=== PATIENT | female | born 1995 | race Caucasian/White ===

== ENCOUNTER → 2022-08-24 07:55 | Outpatient (CLI) | payer OTHER, SELFPAY ==
--- NOTE | 2022-08-24 08:01 | DI.US.S_ITS ---
PROCEDURE: US OB <= 14 WEEKS FETUS INDICATIONS: Dating and viability OUTSIDE/PRIOR DATING DATA: Last menstrual period (LMP): 06/29/2022. LMP-based estimated date of delivery (LEON): 04/05/2023. First dating scan (date and location): 08/24/2022. Estimated date of delivery (LEON) from first dating scan: 04/03/2023. The calculations are made using the clinical LEON of 04/05/2023. TECHNIQUE: Real-time scanning was performed of the fetus and maternal pelvic organs, with image documentation. Endovaginal scanning was also performed to better visualize the fetus and maternal ovaries. COMPARISON: None. FINDINGS: Embryo: Single live intrauterine is identified with crown-rump length measuring 1.8 cm corresponding to 8 weeks 2 days. Small perigestational hemorrhage is identified measuring 3.8 x 2.5 x 0.7 cm. This is compared to 8 weeks 0 days from initial ultrasound. Heart rate: 169 beats per minute Maternal organs: Ovaries demonstrate a corpus luteal cyst on the right.. IMPRESSION: Single live intrauterine measuring 8 weeks 2 days. Small subchorionic hemorrhage. We strive to produce accurate, complete, and clear reports of imaging services. To assist us in improving patient care, this report was composed using standard report templates and voice recognition software. Therefore, it may contain abnormal punctuation, insertions and/or omissions. Occasional wrong-word or sound-alike substitutions may occur. Though we review the report and make efforts to correct it, we do recommend that the report be read carefully in proper context to recognize any text inaccuracies. Dictated by: Nancy Doss M.D. on 08/24/2022 at 13:08 Approved by: Nancy Doss M.D. on 08/24/2022 at 14:13
== END ==
PROVIDERS: Referring Provider Obstetrics & Gynecology; Visit Provider Obstetrics & Gynecology
DX: O46.8X1 Other antepartum hemorrhage, first trimester (principal); Z3A.08 8 weeks gestation of pregnancy
CPT/HCPCS: 76801; 76817

== ENCOUNTER → 2022-09-23 09:46 | Outpatient (CLI) | payer OTHER, SELFPAY ==
[2022-09-23 13:40] LABS: Appearance Urine UA CLEAR; Bilirubin Urine UA NEGATIVE (NEGATIVE); Color Urine UA YELLOW; Glucose Urine UA NEGATIVE (Negative); Ketones Urine UA NEGATIVE (NEGATIVE); Leukocyte Esterase Urine UA 2+ (NEGATIVE); Nitrite Urine UA NEGATIVE (Negative); Occult Blood Urine UA NEGATIVE (Negative); Protein Urine UA NEGATIVE (Negative); Specific Gravity Urine UA <=1.005 (1.000-1.035); Urobilinogen Urine UA 0.2 E.U./dL (0.2)
[2022-09-23 13:50] LABS: pH Urine UA 6.5 (4.5-8.0)
[2022-09-23 14:27] LABS: Bacteria Urine Few (2-10); RBC Urine None Seen (0-5/HPF); Squamous Epithelial Cell Urine 5-10 /HPF (0-5/HPF); WBC Urine 5-10/HPF (0-5/HPF)
[2022-09-23 14:28] LABS: Culture Indicated Urine Cult Not Indicated
[2022-09-23 15:01] LABS: Urine N gonorrhoeae NOT DETECTED
[2022-09-23 15:05] LABS: Urine Chlamydia NOT DETECTED
== END ==
PROVIDERS: Visit Provider Obstetrics & Gynecology
DX: Z34.01 Encounter for supervision of normal first pregnancy, first trimester (principal); Z11.3 Encounter for screening for infections with a predominantly sexual mode of transmission; Z3A.12 12 weeks gestation of pregnancy
CPT/HCPCS: 81003; 81015; 87086; 87491; 87591

== ENCOUNTER → 2022-09-23 10:35 | Outpatient (CLI) | payer OTHER, SELFPAY ==
[2022-09-23 10:57] LABS: Add Manual Diff / Slide Review NO; Basophils Absolute Auto 0 /uL (0-100); Basophils Percent Auto 0.2 % (0-2); Eosinophils Absolute Auto 0 /uL (0-450); Eosinophils Percent Auto 0.3 % (2-4); Lymphocytes Absolute Auto 1400 /uL (1100-4500); Lymphocytes Percent Auto 12.5 % (25-40); Mean Corpuscular HGB Conc 34.3 % (30-36); Mean Corpuscular Hemoglobin 29.8 PG (26-34); Monocytes Absolute Auto 500 /uL (0-900); Monocytes Percent Auto 4.5 % (3-14); Neutrophils Absolute Auto 9000 /uL (1500-7000); Neutrophils Percent Auto 82.5 % (50-75); Platelet Count 309 X10^3/uL (150-400); Red Blood Cell Count 4.02 X10^6/uL (4.0-5.2); Red Cell Distribution Width 12.7 % (11.6-14.8); White Blood Cell Count 10.9 X10^3/uL (4.5-11.0)
[2022-09-24 08:21] LABS: RPR Screen Non Reactive (Non Reactive)
[2022-09-25 08:08] LABS: Varicella IgG Antibody <135 index (Immune >165)
[2022-09-25 20:44] LABS: HIV 1 & 2 Ab/Ag 4th Gen Combo NEGATIVE (NEGATIVE); Hep C Virus Ab w/Reflex Quant NEGATIVE s/c (NEGATIVE); Hepatitis B Surface Antigen NEGATIVE s/c (NEGATIVE); Rubella Antibody IgG 4.3 IU/mL (>15)
== END ==
PROVIDERS: Referring Provider Obstetrics & Gynecology; Visit Provider Obstetrics & Gynecology
DX: Z34.01 Encounter for supervision of normal first pregnancy, first trimester (principal); Z11.3 Encounter for screening for infections with a predominantly sexual mode of transmission; Z3A.12 12 weeks gestation of pregnancy
CPT/HCPCS: 36415; 80055; 81003; 81015; 86787; 86803; 86850; 86900; 86901; 87086; 87389; 87491; 87591

== ENCOUNTER → 2022-10-21 09:56 | Outpatient (CLI) | payer OTHER, SELFPAY ==
[2022-10-23 20:57] LABS: AFP, Serum 32.5 ng/mL (.); Estriol, Free 0.78 ng/mL (.); Inhibin A, Dimeric 123.49 pg/mL (.); Inhibin A, MoM 0.69 (.); Maternal Ethnicity Caucasian (.); Maternal Weight 123 lbs (.); Number of Fetuses No (.); OSBR Risk 1 IN 10000 (.); Results Report (.); Test Results *Screen Negative* (.); hCG, MoM 0.99 (.); hCG, Serum 47319 mIU/mL (.)
== END ==
PROVIDERS: Referring Provider Obstetrics & Gynecology; Visit Provider Obstetrics & Gynecology
DX: Z34.02 Encounter for supervision of normal first pregnancy, second trimester (principal); Z3A.16 16 weeks gestation of pregnancy
CPT/HCPCS: 36415; 82105; 82677; 84702; 86336

== ENCOUNTER → 2022-11-16 14:12 | Outpatient (CLI) | payer OTHER, SELFPAY ==
--- NOTE | 2022-11-16 14:13 | DI.US.S_ITS ---
PROCEDURE: US OB >= 14 WEEKS FETUS INDICATIONS: 20 WEEK ANATOMY SCAN OUTSIDE/PRIOR DATING DATA: Last menstrual period (LMP): 06/29/2022 LMP-based estimated date of delivery (LEON): 04/05/2023. First dating scan (date and location): 08/24/2022. Estimated date of delivery (LEON) from first dating scan: 04/03/2023 Working LEON is 04/05/2023. The calculations are made using the clinical LEON of 04/05/2023. TECHNIQUE: Real-time scanning was performed of the fetus, with image documentation and biometric measurements. COMPARISON: [facility], , OB <= 14 WEEKS FETUS, 08/24/2022, 8:04. FINDINGS: General: A single living intrauterine gestation is present. Presentation: Breech. Placenta: Placental position is fundal , without previa. Amniotic fluid index: 9.8 cm, normal range is 5-24 cm. Single deepest vertical pocket is 3.7 cm. heart rate: 137 beats per minute. Maternal cervical canal: 3.8 cm cm long. Normal lower limit is 2.5 cm. biometrics: Biparietal diameter: 21 weeks 1 day Head circumference: 20 weeks 4 days Abdominal circumference: 20 weeks 4 days Femur length: 19 weeks 3 days Clinically estimated gestational age: 20 weeks Composite gestational age from present scan: 20 weeks 3 days Estimated weight and percentile: 330 g; 57th percentile Anatomic survey: Neuro: Ventricles are non-dilated at less than 10 mm. Cisterna magna is normal at 3-11 mm. Cerebellum is normal in size and morphology. Nuchal skin fold: Normal at less than 6 mm between 14-21 weeks gestational age. Face: Nose and lips, facial profile are normal. Spine: No evidence for spina bifida. Heart: 4-chambered heart is present, with normal ventricular outflow tracts. Diaphragm: Diaphragm is intact. Stomach: Left-sided stomach is present. Kidneys: No hydronephrosis. Normal is less than 5 mm in 2nd trimester, less than 7 mm in 3rd trimester. Cord: 3-vessel cord has orthotopic insertion. Bladder: Normal in size. Extremities: All 4 extremities identified. IMPRESSION: 1. Single living IUP redemonstrated and interval growth is normal. 2. Normal anatomic survey. We strive to produce accurate, complete, and clear reports of imaging services. To assist us in improving patient care, this report was composed using standard report templates and voice recognition software. Therefore, it may contain abnormal punctuation, insertions and/or omissions. Occasional wrong-word or sound-alike substitutions may occur. Though we review the report and make efforts to correct it, we do recommend that the report be read carefully in proper context to recognize any text inaccuracies. Dictated by: Rajeev GELLER Interpreted: Michael Benjamin MD on 11/16/2022 at 15:38 Transcribed by: GUILLE on 11/16/2022 at 15:40 Approved by: Michael Benjamin M.D. on 11/16/2022 at 20:56
== END ==
PROVIDERS: Referring Provider Obstetrics & Gynecology; Visit Provider Obstetrics & Gynecology
DX: Z34.02 Encounter for supervision of normal first pregnancy, second trimester (principal); Z3A.20 20 weeks gestation of pregnancy
CPT/HCPCS: 76811

== ENCOUNTER → 2022-12-30 12:14 | Outpatient (CLI) | payer OTHER, SELFPAY ==
[2022-12-30 13:49] LABS: Hematocrit 32.5 % (36-46); Hemoglobin 11.2 g/dL (12.0-16.0)
[2022-12-30 14:24] LABS: GTT (PREG) 1 Hour PP 50gm Dose 147 mg/dL (76-139)
== END ==
PROVIDERS: Referring Provider Obstetrics & Gynecology; Visit Provider Obstetrics & Gynecology
DX: O26.899 Other specified pregnancy related conditions, unspecified trimester (principal); Z3A.26 26 weeks gestation of pregnancy; Z67.91 Unspecified blood type, Rh negative
CPT/HCPCS: 36415; 82950; 85014; 85018; 86850

== ENCOUNTER → 2023-01-19 08:02 | Outpatient (CLI) | payer OTHER, SELFPAY ==
[2023-01-19 09:06] LABS: Glucose Fasting Gestational 70 mg/dL (76-95)
[2023-01-19 10:40] LABS: Glucose 1 Hour Gest 111 mg/dL (76-180)
[2023-01-19 11:18] LABS: Glucose Tol Interp,Gestational INTERPRETATION
[2023-01-19 11:55] LABS: Glucose 3 Hour Gest 114 mg/dL (76-140)
[2023-01-19 11:59] LABS: Glucose 2 Hour Gest 106 mg/dL (76-155)
== END ==
PROVIDERS: Referring Provider Specialist; Visit Provider Specialist
DX: R73.09 Other abnormal glucose (principal)
CPT/HCPCS: 36415; 82951; 82952

== ENCOUNTER → 2023-03-11 09:15 | Outpatient (CLI) | payer OTHER, SELFPAY ==
[2023-03-12 14:58] LABS: Strep Grp B PCR NEG for Grp B Strep
== END ==
PROVIDERS: Visit Provider Obstetrics & Gynecology
DX: Z34.03 Encounter for supervision of normal first pregnancy, third trimester (principal)
CPT/HCPCS: 87653

== ENCOUNTER 2023-03-17 11:04 | Outpatient (CLI) | payer OTHER, SELFPAY ==
--- NOTE | 2023-03-17 11:46 | PM.OBTRLD ---
Visit Information Visit Information Date of evaluation: 03/17/23 Primary OB Provider: Evans Diehl On-call OB Provider: Ibeth Bains Reason for Evaluation: Yes non-stress test non-stress test reason: decreased movement Vital Signs Vital Signs: Blood pressure 119/79, pulse of 83 [facility] Medical History (Updated 03/17/23 @ 11:48 by Ibeth Bains MD) Abnormal Pap smear of cervix (~2017) Anxiety (~2017) Chronic back pain (~2017) Depression (~2017) Fibroadenoma Pelvic pain PTSD (post-traumatic stress disorder) Rosacea (~2020) Surgical History (Updated 10/20/22 @ 20:19 by Cindy Sanchez) Anesthesia H/O breast surgery History of removal of skin mole [place] teeth extracted (~2011) Family History (Updated 10/20/22 @ 20:20 by Cindy Sanchez) Father Hypertension Sister Anxiety Depression Grandfather Lung cancer Grandmother Dementia Grandfather Heart disease Melanoma Social History marital status: unmarried,living together number of children: 0 household members: significant other lives independently: Yes housing: house pets and animals: Yes (1 dog) education level: college (some college) occupational status: employed (active duty [employer]) current occupational exposures/hazards: No (no Hazmat duties since learning of ) special amer[place] needs: No travel history: recent (domestic only) seatbelt use: always water heater temp set < 120 deg: Yes working smoke detector in home: Yes fire extinguisher in home: Yes carbon monox detector in home: Yes firearms in home: Yes firearms unloaded and locked: Yes do you feel safe at home: Yes Smoking Status: Never smoker second hand exposure: No alcohol intake: former (1-3/week prior to ) substance use type: does not use during the past year weight has: remained stable well-balanced diet: daily or most days daily servings fruits/ve-4 caffeine: Yes (aware of 200mg limit) Type(s) of exercise: walking frequency: 3-4 times per week Evaluation Evaluation Baseline heart rate: 130 Variability: Moderate (11-25) monitor accelerations: Present Monitor Decelerations: Absent Uterine Contraction Intensity: Mild Category of Tracing: Reactive Status: Category l Diagnosis, Plan/Disposition Final Diagnosis (1) Decreased movement: Status: Acute (2) 37 weeks gestation of : Status: Acute Plan/Disposition Plan: Patient reassured that everything looks well. Precautions reviewed. Keep her routine OB appointment. OB Disposition: home
== END 2023-03-17 11:55 | disposition home or self-care (01) ==
LOC: LABOR 11:27 → OB 03-22 11:16
PROVIDERS: Referring Provider Obstetrics & Gynecology; Visit Provider Obstetrics & Gynecology
DX: O36.8130 Decreased fetal movements, third trimester, not applicable or unspecified (principal); Z3A.37 37 weeks gestation of pregnancy
CPT/HCPCS: 59025; G0378; G0379

== ENCOUNTER → 2023-03-18 08:56 | Outpatient (CLI) | payer OTHER, SELFPAY | PROVIDERS: Visit Provider Obstetrics & Gynecology | DX: Z34.01 Encounter for supervision of normal first pregnancy, first trimester (principal) | CPT/HCPCS: 87086 ==

== ENCOUNTER 2023-04-07 15:26 | Outpatient (CLI) | payer OTHER, SELFPAY | END 2023-04-07 16:08 | disposition home or self-care (01) | LOC: OB 04-09 06:09 | PROVIDERS: Referring Provider Obstetrics & Gynecology; Visit Provider Obstetrics & Gynecology | DX: O48.0 Post-term pregnancy (principal); Z3A.40 40 weeks gestation of pregnancy | CPT/HCPCS: 59025; G0378; G0379 ==

== ENCOUNTER 2023-04-10 09:51 | Outpatient (CLI) | payer OTHER, SELFPAY | END 2023-04-10 12:05 | disposition home or self-care (01) | LOC: OB 04-12 14:00 | PROVIDERS: Referring Provider Obstetrics & Gynecology; Visit Provider Obstetrics & Gynecology | DX: O48.0 Post-term pregnancy (principal); Z3A.40 40 weeks gestation of pregnancy | CPT/HCPCS: 59025; G0378; G0379 ==

== ENCOUNTER 2023-04-13 07:21 | Inpatient (IN) | payer OTHER, SELFPAY ==
[2023-04-13] MEDS: DINOPROSTONE VAG (CERVIDIL) 10 MG VAG (08:13)
[2023-04-13 08:16] LABS: Add Manual Diff / Slide Review NO; Basophils Absolute Auto 0 /uL (0-100); Basophils Percent Auto 0.3 % (0-2); Eosinophils Absolute Auto 100 /uL (0-450); Eosinophils Percent Auto 0.5 % (2-4); Hemoglobin 12.6 g/dL (12.0-16.0); Lymphocytes Absolute Auto 1800 /uL (1100-4500); Mean Corpuscular HGB Conc 35.1 % (30-36); Mean Corpuscular Hemoglobin 32.2 PG (26-34); Mean Corpuscular Volume 91.8 fL (80-100); Monocytes Absolute Auto 800 /uL (0-900); Monocytes Percent Auto 5.7 % (3-14); Neutrophils Absolute Auto 12000 /uL (1500-7000); Neutrophils Percent Auto 81.5 % (50-75); Platelet Count 227 X10^3/uL (150-400); Red Blood Cell Count 3.92 X10^6/uL (4.0-5.2); Red Cell Distribution Width 13.7 % (11.6-14.8); White Blood Cell Count 14.7 X10^3/uL (4.5-11.0)
[2023-04-13 09:42] VITALS: BP 122/75
--- NOTE | 2023-04-13 21:44 | PM.OBHP.IH.1 ---
OB HPI Date/Time Date of admission: 04/13/23 Date Patient Seen: 04/13/23 Time Patient Seen: 08:20 History of Present Condition Chief complaint: induction of labor LEON Calculator Estimated Delivery Date Method Current WG Current Estimate 04/05/23 LMP (Certain) 41w 1d Other Estimates 04/03/23 Ultrasound #1 41w 3d Estimated Gestational Age (weeks): 41+1 : 1 Para: 0 care: good care, initiated at week # (12), number of visits (13) and pounds weight gain (58) Dating criteria OB: LMP confirmed by 1st trimester US Ultrasounds: normal 1st trimester US and normal mid trimester US Obstetrical complications: none Medical complications OB: none Indications Indication for induction OB: post dates Preadmission Labs Last OB Lab Results: Blood Type O Negative 04/13/23 08:00 Antibody Screen Positive 04/13/23 08:00 Hematocrit 36.0 % (36-46) 04/13/23 08:00 Hemoglobin 12.6 g/dL (12.0-16.0) 04/13/23 08:00 Hepatitis B Surface Antigen Negative s/c (NEGATIVE) 09/23/22 10:39 Hepatitis C Antibody Negative s/c (NEGATIVE) 09/23/22 10:39 Rubella Antibody 4.3 IU/mL (>15) L 09/23/22 10:39 Varicella-Zoster IgG Antibody <135 index (Immune >165) L 09/23/22 10:39 Glucose 1 Hour 147 mg/dL (76-139) H 12/30/22 13:34 Group B Streptococcus (PCR) Neg for grp b strep 03/11/23 09:15 Glucose Tolerance Testing: Fasting (70), 1 hr (111), 2 hr (106) and 3 hr (114) -: Chlamydia screen: negative, Gonorrhea screen: negative and Urine: negative -: PAP smear: Normal Genetic Screens: Quad screen: Normal External Labs -: Urine: negative Evaluation Evaluation Baseline heart rate: 135 Variability: Moderate (11-25) monitor accelerations: Present Monitor Decelerations: Absent Dilation (cm): 1 Effacement (%): 80 station: -1 Position of cervix: mid Consistency: medium [facility] Medical History (Updated 04/01/23 @ 09:46 by Evans Diehl MD) Abnormal Pap smear of cervix (~2017) Anxiety (~2017) Chronic back pain (~2017) Depression (~2017) Fibroadenoma Pelvic pain PTSD (post-traumatic stress disorder) Rosacea (~2020) Surgical History (Updated 10/20/22 @ 20:19 by Cindy Sanchez) Anesthesia H/O breast surgery History of removal of skin mole [place] teeth extracted (~2011) Family History (Updated 10/20/22 @ 20:20 by Cindy Sanchez) Father Hypertension Sister Anxiety Depression Grandfather Lung cancer Grandmother Dementia Grandfather Heart disease Melanoma Social History marital status: unmarried,living together number of children: 0 household members: significant other lives independently: Yes housing: house pets and animals: Yes (1 dog) education level: college (some college) occupational status: employed (active duty [employer]) current occupational exposures/hazards: No (no Hazmat duties since learning of ) special amer[place] needs: No travel history: recent (domestic only) seatbelt use: always water heater temp set < 120 deg: Yes working smoke detector in home: Yes fire extinguisher in home: Yes carbon monox detector in home: Yes firearms in home: Yes firearms unloaded and locked: Yes do you feel safe at home: Yes Smoking Status: Never smoker second hand exposure: No alcohol intake: former (1-3/week prior to ) substance use type: does not use during the past year weight has: remained stable well-balanced diet: daily or most days daily servings fruits/ve-4 caffeine: Yes (aware of 200mg limit) Type(s) of exercise: walking frequency: 3-4 times per week Meds Home Medications and Allergies Home Medications Medication Instructions Recorded Confirmed Type prenat.vits,nikolas,eoj-thcd-hvhrn 1 tab PO DAILY 08/13/22 04/13/23 History pyridoxine (vitamin B6) 100 mg 100 mg PO BID PRN nausea and 08/13/22 04/13/23 History tablet vomiting Allergies Allergy/AdvReac Type Severity Reaction Status Date / Time No Known Drug Allergies Allergy Unverified 04/07/23 14:52 OB Exam Narrative Exam Narrative: Generally: Patient is sitting up in bed, no acute distress Lungs: Clear to auscultation bilaterally Cardiovascular: Regular rate and rhythm Fundal height: 41 cm Estimated weight: 8-1/2 lb Extremities: No edema Objective Labs 04/13/23 08:00 Labs: Laboratory Results - last 24 hr 04/13/23 04/13/23 08:00 08:00 WBC 14.7 H RBC 3.92 L Hgb 12.6 Hct 36.0 MCV 91.8 MCH 32.2 MCHC 35.1 RDW 13.7 Plt Count 227 Neut % (Auto) 81.5 H Lymph % (Auto) 12.0 L Glynn % (Auto) 5.7 Eos % (Auto) 0.5 L Baso % (Auto) 0.3 Neut # (Auto) 28970 H Lymph # (Auto) 1800 Glynn # (Auto) 800 Eos # (Auto) 100 Baso # (Auto) 0 Blood Type O Negative Antibody Screen Positive Antibody Identification Anti-D Assessment and Plan Assessment and Plan Assessment and Plan narrative: Assessment: 27-year-old 1 para 0 at 41-,1/7 weeks gestation for cervical ripening Plan: Cervidil placed Will re-evaluate after 12 hours Time Spent with Patient Total time spent with greater than 50% in coordination of care (as documented) at patient's floor/unit and/or counseling patient:: less than 15 minutes
--- NOTE | 2023-04-13 21:49 | PM.OBPNLAB ---
Date/Time Date Patient Seen: 04/13/23 Time Patient Seen: 21:49 Pain Control Pain control: tolerating well Comments: Cervidil removed at 3:00 p.m. due to every 1 minute contractions and some variable decelerations. Pelvic Exam Dilation (cm): 1 Effacement (%): 85 station: -1 Amniotic membrane status: Intact Contractions Contractions on admission: none Monitor mode: External Contraction frequency (min): 5 Contraction duration (min): 1 Contraction pattern: Irregular Contraction intensity: Mild Status Heart Rate Baseline: 125 Monitor Accelerations: Present Monitor Decelerations: Absent Monitor Variability: Moderate Assessment and Plan Assessment: other Comments: Assessment: 27-year-old 1 para 0 at 41-,1/7 weeks gestation with unfavorable cervix Cervidil pulled due to too frequent contractions Plan: Rest overnight Will reassess in the morning regarding Pitocin Ambien as needed overnight
[2023-04-14] MEDS: OXYTOCIN PREMIX 30 UNIT/500 ML PLAST..BAG IV (08:30)
[2023-04-14] MEDS: LACTATED RINGERS 1,000 ML 100 ML IV ×2 (08:30→16:45)
[2023-04-14] MEDS: fentaNYL 100 MCG/2 ML INJ 50 MCG IV (17:08)
--- NOTE | 2023-04-14 17:13 | PM.OBPNLAB ---
Date/Time Date Patient Seen: 04/14/23 Time Patient Seen: 07:50 Pain Control Pain control: tolerating well Pelvic Exam Dilation (cm): 1 Effacement (%): 85 station: -1 Amniotic membrane status: Intact Contractions Monitor mode: External Pitocin rate (mU/min): 2 Contraction frequency (min): 5 Contraction pattern: Irregular Contraction intensity: Mild Status status: Category l Heart Rate Baseline: 135 Monitor Accelerations: Present Monitor Decelerations: Absent Monitor Variability: Moderate Assessment and Plan Assessment: induction ongoing Comments: AROM when able Epidural prn Expectant management to
--- NOTE | 2023-04-14 17:15 | PM.OBPNLAB ---
Date/Time Date Patient Seen: 04/14/23 Time Patient Seen: 12:30 Pain Control Pain control: tolerating well Pelvic Exam Dilation (cm): 2 Effacement (%): 90 station: -1 Amniotic membrane status: Intact Contractions Monitor mode: External Pitocin rate (mU/min): 10 Contraction frequency (min): 3 Contraction duration (min): 1 Contraction pattern: Irregular Contraction intensity: Moderate Status status: Category l Heart Rate Baseline: 135 Monitor Accelerations: Present Monitor Decelerations: Absent Monitor Variability: Moderate Assessment and Plan Comments: Attempted AROM Pt to ambulate
--- NOTE | 2023-04-14 17:16 | PM.OBPNLAB ---
Date/Time Date Patient Seen: 04/14/23 Time Patient Seen: 13:15 Pain Control Pain control: tolerating well Pelvic Exam Dilation (cm): 3 Effacement (%): 90 station: -1 Amniotic membrane status: Intact Contractions Monitor mode: External Pitocin rate (mU/min): 12 Contraction frequency (min): 3 Contraction pattern: Irregular Contraction intensity: Moderate Status status: Category l Heart Rate Baseline: 135 Monitor Accelerations: Present Monitor Decelerations: Absent Monitor Variability: Moderate Assessment and Plan Assessment: active labor Comments: AROM with copious clear amniotic fluid Epidural prn
--- NOTE | 2023-04-14 17:17 | PM.OBPNLAB ---
Date/Time Date Patient Seen: 04/14/23 Time Patient Seen: 17:17 Pain Control Comments: Pt very uncomfortable with contractions Pelvic Exam Effacement (%): 90 station: -1 Amniotic membrane status: Intact Contractions Contractions on admission: none Monitor mode: External Pitocin rate (mU/min): 16 Contraction frequency (min): 3 Contraction duration (min): 1 Contraction pattern: Irregular Contraction intensity: Strong/Firm Status status: Category l Heart Rate Baseline: 125 Monitor Accelerations: Present Monitor Decelerations: Absent Monitor Variability: Moderate Assessment and Plan Assessment: active labor Comments: Patient desires epidural Expectant management to
[2023-04-14] MEDS: FENT 2MCG/ML BUPIV 0.125% EPI 200 MCG/100 ML PLAST..BAG 12 MCG EPIDURAL ×2 (18:21→23:59)
--- NOTE | 2023-04-14 18:34 | PM.ANES.PR ---
Operative Date/Time/Diagnoses Date of procedure: 04/14/23 Time of procedure: 17:40 Pre-op diagnosis: labor pain
--- NOTE | 2023-04-14 18:36 | PM.AN.REGBLK ---
Regional Block Pre-procedure Procedure: Continuous Lumbar Epidural for L&D PMH/ROS narrative: Labor pain Exam narrative: WNL ASA Class: II Labs: Hct 36.0 % (36-46) 04/13/23 08:00 Plt Count 227 X10^3/uL (150-400) 04/13/23 08:00 Medications: Current Medications Generic Name Dose Route Start Last Admin Trade Name Freq PRN Reason Stop Dose Admin Calcium Carbonate 1,000 mg 04/13/23 07:42 Calcium Carbonate 500 Mg Tab PO Q4HR PRN Dyspepsia Carboprost Tromethamine 250 mcg 04/13/23 07:42 Carboprost 250 Mcg/Ml Ampul IM Q90M PRN Bleeding Diphenhydramine HCl 25 mg 04/14/23 18:33 Diphenhydramine 50 Mg/Ml Vial IV Q10M PRN Pruritis Fentanyl 50 mcg 04/13/23 07:42 04/14/23 17:08 Fentanyl 100 Mcg/2 Ml Inj IV 50 mcg Q1H PRN Administration Pain, Moderate (4-6) Tranexamic Acid 1,000 mg/ 100 mls @ 200 mls/hr 04/13/23 07:42 Sodium Chloride IV NOW PRN Bleeding Oxytocin/Lactated Ringer's 30 unit in 500 mls @ 2 mls/hr 04/13/23 07:45 04/14/23 08:30 Oxytocin Premix IV 2 milliunit/min TITRATE OLE 2 mls/hr Administration Protocol 2 MILLIUNIT/MIN Lactated Ringer's 1,000 mls @ 100 mls/hr 04/13/23 07:45 04/14/23 16:45 Lactated Ringers IV 100 mls/hr CONT OLE Administration Oxytocin/Lactated Ringer's 30 unit in 500 mls @ 200 mls/hr 04/13/23 07:42 Oxytocin Premix IV CONT PRN Bleeding Protocol FENT 2MCG/ML BUPIV 0.125% EPI 200 mcg in 100 mls @ 12 mls/hr 04/14/23 18:45 Fentanyl/Bupiv/Ns 2mcg/Ml - 0.125% EPIDURAL CONT OLE Lidocaine HCl 20 ml 04/13/23 07:42 Lidocaine 1% 20 Ml INJ INTRA-OP PRN Post Delivery Methylergonovine Maleate 0.2 mg 04/13/23 07:42 Methylergonovine 0.2 Mg/Ml Vial IM NOW PRN Bleeding Methylergonovine Maleate 0.2 mg 04/13/23 07:42 Methylergonovine 0.2 Mg Tablet PO Q6HR PRN Heavy Bleeding Misoprostol 400 mcg 04/13/23 07:42 Misoprostol 200 Mcg Tablet SL NOW PRN Bleeding Misoprostol 800 mcg 04/13/23 07:42 Misoprostol 200 Mcg Tablet [place] NOW PRN Bleeding Nalbuphine HCl 2.5 mg 04/14/23 18:33 Nalbuphine 20 Mg/Ml Ampul IV Q10M PRN Pruritis Naloxone HCl 0.2 mg 04/13/23 07:42 Naloxone 0.4 Mg/Ml Vial IV Q2MIN PRN Opiate Reversal Ondansetron HCl 4 mg 04/13/23 07:42 Ondansetron 4 Mg/2 Ml Inj IV Q4HR PRN Nausea And Vomiting Oxytocin 10 unit 04/13/23 07:42 Oxytocin 10 Unit/Ml Vial IM NOW PRN Bleeding Allergies: Allergies Allergy/AdvReac Type Severity Reaction Status Date / Time No Known Drug Allergies Allergy Unverified 04/07/23 14:52 Procedure Insertion date: 04/14/23 Insertion time: 17:44 Prep/Local: betadine x3 Interspace: L4-5 Loss of resistance with: air SUSAN at (cm): 6 Catheter placed at SKIN (cm): 12 Catheter in SPACE (cm): 6 Initial Medications TEST DOSE time: 17:45 BOLUS DOSE time: 17:48 BOLUS DOSE med: 0.25% bupivacaine (10ml) Infusion Initial rate (mL/hr): 12
[2023-04-14] MEDS: ePHEDrine 50 MG/ML VIAL (19:51)
[2023-04-15] MEDS: FENT 2MCG/ML BUPIV 0.125% EPI 200 MCG/100 ML PLAST..BAG 12 MCG EPIDURAL ×2 (07:51→14:30)
--- NOTE | 2023-04-15 09:37 | PM.OBPNLAB ---
Date/Time Date Patient Seen: 04/15/23 Time Patient Seen: 09:37 Pain Control Pain control: epidural Comments: Epidural had to be pulled back and rebolused Pelvic Exam Dilation (cm): 9 Effacement (%): 100 station: -1 Amniotic membrane status: Ruptured Contractions Monitor mode: External Pitocin rate (mU/min): 14 Contraction frequency (min): 4 Contraction duration (min): 125 Contraction pattern: Regular Contraction intensity: Strong/Firm Status status: Category l Heart Rate Baseline: 125 Monitor Accelerations: Present Monitor Decelerations: Absent Monitor Variability: Moderate Assessment and Plan Assessment: active labor Comments: Side to side and then recheck cervix
[2023-04-15] MEDS: CEFAZOLIN 2 GM/100 ML PREMIX 100 ML IV ×2 (10:29→22:34)
--- NOTE | 2023-04-15 16:01 | PM.EVENT ---
Event Note Date Patient Seen: 04/15/23 Time Patient Seen: 09:00 Event Note (Rapid Response, Code, or fall): Patient c\o of one sided epidural, c/o pain on left side. Epidural catheter pulled back 1cm to 9cm at skin and re-taped. Patient given epidural bolus of 100mcg Fentanyl and 4 cc of 0.25% Bupivacaine with good effect. She denied pain with contractions afterwards. Dr. Lima Anesthesiologist
[2023-04-15] MEDS: OXYTOCIN PREMIX 30 UNIT/500 ML PLAST..BAG 200 UNIT IV (16:28)
[2023-04-15] MEDS: LACTATED RINGERS 1,000 ML 100 ML IV ×2 (16:50→19:16)
[2023-04-15] MEDS: OXYTOCIN PREMIX 30 UNIT/500 ML PLAST..BAG 999 UNIT IV (16:55)
[2023-04-15 17:03] VITALS: BP 88/52; PULSE 134; RESP 15; TEMP 35.7
[2023-04-15 17:18] LABS: Hematocrit 32.9 % (36-46); Hemoglobin 10.9 g/dL (12.0-16.0)
[2023-04-15 17:30] VITALS: BP 89/52; PULSE 115; RESP 16; TEMP 37.4
[2023-04-15 18:33] VITALS: BP 89/52; PULSE 115; RESP 17; TEMP 37.4
--- NOTE | 2023-04-15 18:56 | PM.OBPRVD ---
Events: Labor Induction Labor & Delivery Delivery date: 04/15/23 Intrapartal Events: Prolonged Labor > 20 hours, Prolonged Latent Phase, Prolonged 2nd Stage > 2.5 hours, Febrile, Extended Tachycardia and Chorioamnionitis Cervical ripening method: per Cervidil protocol Induction method: per pitocin protocol Delivery augmentation: rupture of membranes Delivery monitor: external FHT and external uterine Route of delivery: forceps (Laufe, outlet) Indication for instrumentation: nonreassuring FHR tracing ( tachycardia) Episiotomy description: None L&D Laceration Description: Perineal - 2nd Degree and Vaginal - 2nd Degree (and bilateral sidewall lacerations) Delivery repair: vicryl and chromic Quantitative Blood Loss: 2,142 Anesthesia Type: Epidural Complications: excessive blood loss due to obstetrical lacerations Narrative: Patient complete and pushed for 4 hours and 11 minutes. Due to maternal fever, maternal and tachycardia, Laufe forceps were applied and articulated without difficulty. With 2 pulls, the vertex was brought to the perineum. The forceps were removed. With 2 pushes, the vertex delivered over an intact perineum at 4:06 p.m.. No nuchal cord. The remainder of the body delivered without difficulty and the infant was placed on mom's abdomen. The cord was double clamped and cut after 2 minutes. A piece of cord for cord pH was obtained. Cord bloods were obtained. The placenta delivered intact with a three-vessel cord at 4:14 p.m.. Cultures of and maternal side of the placenta were obtained. There were bilateral vaginal sidewall tears and a second-degree perineal laceration. These were repaired in the usual fashion. A rectal exam was performed and no tear or sutures in the rectum. During the repair there was excessive blood loss requiring 3500 cc of IV fluids. 500 cc of that was with 30 units of Pitocin. 2 units of packed red blood cells were given. Patient's lowest blood pressure 50s over 20s. Apgars 7 at 1 minute 9 at 5 minutes. weight 7 lb 13.6 oz. QBL 2142 cc. Venous cord pH 7.337. Arterial cord pH 7.124. is stable to recovery. Mom 1 on 1 for next 12 hours. [place] Baby 1: gender: Male Presentation: vertex Position: Right Occiput Anterior Placenta delivery description: Spontaneous Cord Vessel Description: 3 Vessels score (1 min): 7 score (5 min): 9 weight: 7 lb 13.6 oz Plan for aftercare: Other (One on one for next 12 hours)
[2023-04-15 21:21] LABS: Hematocrit 28.3 % (36-46); Hemoglobin 9.9 g/dL (12.0-16.0)
[2023-04-15 22:05] VITALS: TEMP 36.1
[2023-04-15] MEDS: DOCUSATE 100 MG CAPSULE PO (22:05)
[2023-04-15] MEDS: IBUPROFEN 600 MG TABLET PO (22:05)
[2023-04-16 04:27] LABS: Hematocrit 24.7 % (36-46); Hemoglobin 8.6 g/dL (12.0-16.0); Mean Corpuscular HGB Conc 34.7 % (30-36); Mean Corpuscular Volume 89.3 fL (80-100); Platelet Count 163 X10^3/uL (150-400); Red Blood Cell Count 2.77 X10^6/uL (4.0-5.2); Red Cell Distribution Width 15.7 % (11.6-14.8); White Blood Cell Count 27.1 X10^3/uL (4.5-11.0)
[2023-04-16 04:28] LABS: Add Manual Diff / Slide Review YES
[2023-04-16 04:37] VITALS: TEMP 36.6
[2023-04-16] MEDS: ACETAMINOPHEN 325 MG TABLET 650 MG PO ×2 (04:37→10:26)
[2023-04-16 06:08] VITALS: TEMP 36
[2023-04-16] MEDS: IBUPROFEN 600 MG TABLET PO ×3 (06:08→20:07)
[2023-04-16] MEDS: DERMOPLAST SPRAY 20% 60 ML 1 SPRAY TOP (06:08)
[2023-04-16] MEDS: CEFAZOLIN VIAL 1 GM in SODIUM CHLORIDE 0.9% 100 ML IV ×3 (06:57→23:41)
[2023-04-16 07:17] LABS: Neutrophils Absolute Manual 23848 /uL (3000-5900); Total Cells Counted 100
[2023-04-16 07:18] LABS: RBC Morphology Normal Morphology
[2023-04-16] MEDS: FERROUS SULFATE 325 MG TABLET PO (10:25)
[2023-04-16] MEDS: PRENATAL VIT,CALC/IRON/FOLIC 1 TABLET 1 TAB PO (10:25)
[2023-04-16] MEDS: DOCUSATE 100 MG CAPSULE PO ×2 (10:26→20:07)
[2023-04-17] MEDS: IBUPROFEN 600 MG TABLET PO ×2 (03:07→08:52)
[2023-04-17] MEDS: DOCUSATE 100 MG CAPSULE PO (08:53)
[2023-04-17] MEDS: FERROUS SULFATE 325 MG TABLET PO (08:53)
[2023-04-17] MEDS: PRENATAL VIT,CALC/IRON/FOLIC 1 TABLET 1 TAB PO (08:53)
[2023-04-17 14:19] VITALS: BP 119/69; PULSE 102; RESP 14; TEMP 37
--- NOTE | 2023-04-18 21:23 | P.PNOB_ITS ---
Subjective - OB Subjective Patient comments: other (perineal heaviness) [place] baby status: doing well [place] feeding status: breast and bottle feeding Date Patient Seen: 04/16/23 Time Patient Seen: 11:30 Interval history: day #1 status post outlet forceps delivery. Mosher catheter still in place. Patient complains of heaviness in her perineum. Bleeding is minimal. is using a breast shield to breastfeed. Has seen . Exam Narrative Exam Narrative: Generally: Patient is sitting up in bed, holding , no acute distress Fundus: Firm at U -2 Perineum: Edema. Extremities: 1+ edema, negative Homans Objective Labs 04/16/23 04:01 Assessment & Plan Plan day: 1 Comments: Will DC Mosher catheter this afternoon Ambulate Continue ice patch perineum to see pt later today again Time Spent With Patient Time: Total time spent is greater than 50% in coordination of care (as documented) at patient's floor/unit and/or counseling patient: Time with patient: 15-24 minutes
--- NOTE | 2023-04-18 21:35 | PM.OBDS.1 ---
Discharge Providers Provider Date of admission: 04/13/23 07:21 Discharge Date: 04/17/23 Primary care physician: Mimi FISCHER Provider Consults: 04/13/23 07:42 Consult to Anesthesiology Urgent Comment: Consulting Provider: Anesthesiologist Reason for consultation: Epidural Has provider been notified: No 04/16/23 18:19 Consult to Aircraft Sales Representative Routine Comment: Discharge provider: Yesenia Strickland MD Summary Hospital Course Date Patient Seen: 04/17/23 Time Patient Seen: 11:30 Diagnoses: 41+4 weeks gestatiion Cervidil cervical ripening Pitocin induction of labor Artificial rupture of membranes Epidural analgesia Outlet forceps assisted delivery Vaginal laceration repair Acute blood loss anemia Blood transfusion Hospital Course: Patient is a 27-year-old 1 para 1 who presented on April 13, 2023 for induction of labor. She received a Cervidil for cervical ripening. At 3:00 p.m. on April 13, 2023 it was removed due to contractions being too close together. On the morning of April 14, 2023 she was 1 cm/ 85% effaced/ -1 station. She was started on Pitocin. At 12:30 p.m. and attempt to rupture membranes was performed she was 2 cm/ 90%/ -1 station. At 1:15 a.m. artificial rupture of membranes was performed with copious clear amniotic fluid. At 5:15 a.m. she was 3 cm/ 90% effaced / -1 station. She received an epidural for pain management. She took a short Pitocin break overnight. The next morning on April 15, 2023 she was found to be 9 cm/100% effaced / -1 station. She pushed for 4 hours. Due to maternal and tachycardia and maternal temp, forceps were applied. Outlet forceps assisted delivery was performed. There were bilateral vaginal sidewall lacerations that were repaired. She had excessive blood loss and required 2 units of packed red blood cells due to low blood pressure and patient being symptomatic. her course was quite unremarkable. The Mosher catheter was removed on day # 1. She was able to void without the catheter. On day # 2 her bleeding was minimal. She was ambulating without assistance. was going well. She was discharged home. Peripartum Data Delivery Method: Assisted Delivery (Laufe outlet forceps) Laceration Description: Perineal - 2nd Degree and Vaginal - 2nd Degree (bilateral sidewall) Episiotomy description: None Procedures: Cervidil cervical ripening Pitocin induction of labor Artificial rupture of membranes Epidural analgesia Outlet forceps assisted delivery Second degree perineal and bilateral vaginal sidewall laceration repair Blood transfusion of 2 units of PRBC's complications: transfusion (2 units of PRBC's) [facility] 1: Gender: Male Disposition of : home Status at Discharge Cognitive/behavioral status at discharge: oriented Functional status at discharge: independent ambulation Overall status at discharge: patient is progressing back to baseline Time Spent with Patient Time attestation: Total time spent providing and/or coordinating discharge services: Time spent: Greater than 30 minutes Objective Labs 04/16/23 04:01 Exam Narrative Exam Narrative: Generally: Sitting up in bed, holding , no acute distress Fundus: Firm at U/-1 Perineum: Edematous Ext: 1+ edema, neg Laura's Discharge Plan Discharge Plan Patient Disposition: Home Provider Discharge Comment: Call with fever, chills, or bleeding vaginally more than a pad in an hour Ibuprofen 600 mg every 6 hours as needed Tylenol 650 mg every 6 hours as needed Stool softener as needed Continue vitamins Push oral fluids Discharge orders & Medications Prescriptions: Continued prenat.vits,nikolas,[id number] Tablet 1 tab PO DAILY Discontinued pyridoxine (vitamin B6) 100 mg tablet 100 mg PO BID PRN (Reason: nausea and vomiting) Follow up/Referrals: Yesenia Strickland MD [Physician] - 04/23/23 9:30 am Diet/Activity/Treatments Diet: Regular Skin/Wound/Dressing Care Report to your healthcare provider any signs of infection, such as:: chills, fever, increased pain and unusual drainage Visit Report/Discharge Packet Instructions: DI for Labor and Delivery, Vaginal Stand Alone Forms: Patient Portal/API, Stroke Signs & Symptoms Discharge Data Primary Care Provider: ProviderMimi Discharges patient from system. Discharge Date/Time: 04/17/23 13:25
== END 2023-04-17 13:25 | disposition home or self-care (01) | DRG 806 ==
PROVIDERS: Admitting Provider Obstetrics & Gynecology; Referring Provider Obstetrics & Gynecology; Visit Provider Obstetrics & Gynecology
DX: O41.1230 Chorioamnionitis, third trimester, not applicable or unspecified (principal); D62 Acute posthemorrhagic anemia; Z37.0 Single live birth; O36.0130 Maternal care for anti-D [Rh] antibodies, third trimester, not applicable or unspecified; O75.2 Pyrexia during labor, not elsewhere classified; O48.0 Post-term pregnancy; O63.0 Prolonged first stage (of labor); O63.1 Prolonged second stage (of labor); O75.89 Other specified complications of labor and delivery; O70.1 Second degree perineal laceration during delivery; O76 Abnormality in fetal heart rate and rhythm complicating labor and delivery; O67.8 Other intrapartum hemorrhage; Z3A.41 41 weeks gestation of pregnancy; Z67.41 Type O blood, Rh negative
CPT/HCPCS: 36415; 36430; 59050; 59400; 59409; 85007; 85014; 85018; 85025; 86850; 86870; 86900; 86901; 87070; 87075; 87205; P9016; G0379; J0690; J2590; J3010

== ENCOUNTER → 2023-04-23 10:04 | Outpatient (CLI) | payer OTHER, SELFPAY ==
[2023-04-23 13:55] LABS: Free T4, Direct Thyroxine 1.34 ng/dL (0.78-2.19)
[2023-04-23 14:08] LABS: Thyroid Stimulating Hormone 0.988 uIU/mL (0.47-4.68)
== END ==
PROVIDERS: Referring Provider Obstetrics & Gynecology; Visit Provider Obstetrics & Gynecology
DX: O72.1 Other immediate postpartum hemorrhage (principal)
CPT/HCPCS: 36415; 84439; 84443

== ENCOUNTER 2023-04-30 11:57 | Emergency (ER) | payer OTHER, SELFPAY ==
[2023-04-30 12:18] VITALS: BP 128/70; PULSE 83; RESP 16; TEMP 36.7; O2SAT 99; BMI 24.3
--- NOTE | 2023-04-30 14:24 | ED_ITS ---
HPI - Extremity Problem General Chief complaint: Extremity Problem,Nontraumatic Stated complaint: lt arm nerve pain Time Seen by Provider: 04/30/23 14:19 Source: patient Mode of arrival: Family Vehicle History of Present Illness HPI Narrative: Patient is a healthy 27-year-old female 2 weeks delivered on April 15 presenting today with left arm numbness and tingling. She reports that she had an IV in her hand initially that blue she then had to have 1 in her left AC. Since then she is had some numbness and tingling in her left arm she has no swelling she calls it pins and needles. It is difficult to feed at times and h old infant. No fever or chills. She is been taking Tylenol and 400 mg of ibuprofen she says it is not helping. She reports the other things are going well. She says the bleeding has slowed feeding is going well she really has no other complaints or problems. Related Data Home Medications Medication Instructions Recorded Confirmed prenat.vits,nikolas,[id number] 1 tab PO DAILY 08/13/22 04/23/23 Previous Rx's Medication Instructions Recorded prednisone 20 mg tablet 40 mg PO DAILY #10 tabs 04/30/23 Allergies Allergy/AdvReac Type Severity Reaction Status Date / Time No Known Drug Allergies Allergy Unverified 04/23/23 09:32 Review of Systems Review of Systems ROS Unobtainable: All systems reviewed & are unremarkable except as noted in HPI and below Patient History Medical History Abnormal Pap smear of cervix (~2017) Anxiety (~2017) Chronic back pain (~2017) Depression (~2017) Fibroadenoma Pelvic pain PTSD (post-traumatic stress disorder) Rosacea (~2020) Surgical History Anesthesia H/O breast surgery History of removal of skin mole [place] teeth extracted (~2011) Family History Father Hypertension Sister Anxiety Depression Grandfather Lung cancer Grandmother Dementia Grandfather Heart disease Melanoma Social History marital status: unmarried,living together number of children: 0 household members: significant other lives independently: Yes housing: house pets and animals: Yes (1 dog) education level: college (some college) occupational status: employed (active duty [employer]) current occupational exposures/hazards: No (no Hazmat duties since learning of ) special [place] needs: No travel history: recent (domestic only) seatbelt use: always water heater temp set < 120 deg: Yes working smoke detector in home: Yes fire extinguisher in home: Yes carbon monox detector in home: Yes firearms in home: Yes firearms unloaded and locked: Yes do you feel safe at home: Yes Smoking Status: Never smoker second hand exposure: No alcohol intake: former (1-3/week prior to ) substance use type: does not use during the past year weight has: remained stable well-balanced diet: daily or most days daily servings fruits/ve-4 caffeine: Yes (aware of 200mg limit) Type(s) of exercise: walking frequency: 3-4 times per week Smoking Status: Never smoker alcohol intake frequency: 0-2 drinks per day Substance Use Type: does not use Exam Initial Vital Signs Initial Vital Signs: Vital Signs Temperature 98.0 F 04/30/23 12:18 Pulse Rate 83 04/30/23 12:18 Respiratory Rate 16 04/30/23 12:18 Blood Pressure 128/70 04/30/23 12:18 Pulse Oximetry 99 04/30/23 12:18 Oxygen Delivery Method Room Air 04/30/23 12:18 GENERAL: Well-appearing, well-nourished and in no acute distress. CARDIOVASCULAR: peripheral pulses in tact, cap refill <2 sec RESPIRATORY: No respiratory distress, speaks in full sentences without d ifficulty EXTREMITIES: Normal range of motion, no clubbing or edema. 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 NEUROLOGICAL: Cranial nerves II through XII grossly intact. Normal gait and speech. SKIN: Warm, dry, no petechiae, no rashes or lesions. Course Vital Signs Vital signs: Vital Signs - 8 hr 04/30/23 12:18 Temperature 98.0 F Pulse Rate 83 Respiratory Rate 16 Blood Pressure 128/70 Pulse Oximetry 99 Oxygen Delivery Method Room Air MDM - Extremity (Nontraumatic) MDM Narrative Medical decision making narrative: Patient healthy 27-year-old female presenting today with numbness tingling and left arm after an IV starting in the left AC and going down into her hand. This seems to be nerve related. There is absolutely no swelling symptoms not consistent with an upper extremity DVT. She is given Toradol here in the ED. May try some prednisone for the next 5 days to see if it helps. She is having some difficulty holding and feeding. At this time no indication for any further workup Discharge Plan Departure Patient Disposition: Home Clinical Impression: Peripheral neuropathy Instructions: Peripheral Neuropathy Activity Restrictions/Additional Instructions: *You have been diagnosed with neuropathy *What to do: At this time may try heating pad and ice as needed *Continue to take medications as directed Prednisone 40 mg once a day for 5 days *Follow up with your primary care provider in 2-3 days or call [phone] *Return to ER if you should have increased swelling weakness pain fever or any new, worsening or concerning symptoms Prescriptions: New prednisone 20 mg tablet 40 mg PO DAILY Qty: 10 0RF No Action prenat.vits,nikolas,[id number] Tablet 1 tab PO DAILY Referrals: ProviderMimi [Primary Care Provider] - Stand Alone Forms: Patient Portal/API
[2023-04-30] MEDS: KETOROLAC 30 MG/ML VIAL IM (14:45)
== END 2023-04-30 15:00 | disposition home or self-care (01) ==
PROVIDERS: Emergency Provider Emergency Medicine
DX: G62.9 Polyneuropathy, unspecified (principal)
CPT/HCPCS: 96372; 99283; J1885